=== PATIENT | male | born 1945 | race Caucasian/White ===

== ENCOUNTER 2018-06-03 07:15 | Inpatient (IN) | payer OTHER ==
[~2018-06-03 07:15] MED LIST: TRANEXAMIC ACID 1,000 MG in NS 100 ML IV ONE
[2018-06-03] MEDS ORDERED: LR 1,000 ML IV ONE (11:39)
[2018-06-03] MEDS ORDERED: morphINE PF 0.2 MG in SYRINGE INTRATHECAL 1 SYR IT ONE (11:39)
[2018-06-03] MEDS ORDERED: ACETAMINOPHEN 500 MG TAB PO ONE (11:39)
[2018-06-03] MEDS ORDERED: GABAPENTIN 300 MG CAP PO ONE (11:39)
[2018-06-03] MEDS ORDERED: LIDOCAINE 1% 2 ML INJ ID PRN (11:39)
[2018-06-03] MEDS ORDERED: fentaNYL 50 MCG in SYRINGE INTRATHECAL 1 SYR IT ONE (11:39)
[2018-06-03] MEDS ORDERED: ceFAZolin 2 GM/DEXTROSE 100 ML IV ONE (11:39)
[2018-06-03] MEDS ORDERED: BUPIVACAINE 0.25% 10 ML SDV ONE (12:42)
[2018-06-03] MEDS ORDERED: THROMBIN (BOVINE) 5,000 UNIT VIAL TP ONE (12:42)
[2018-06-03] MEDS ORDERED: BACITRACIN 50,000 UNITS/10 ML SYR IRR ONE (12:42)
[2018-06-03] MEDS ORDERED: CHLORHEXIDINE GLUC HIBICLENS 118 ML BTL TP ONE (12:42)
[2018-06-03] MEDS ORDERED: BUPIVACAINE/EPI 0.25% 30 ML SDV ONE (12:42)
--- NOTE | 2018-06-03 12:52 | PDHPUP ---
History & Physical Update H&P update statement: This history and physical update is based on an assessment of the patient which was completed after admission or registration (within 24 hours), but prior to the surgery/procedure. H&P update: H&P reviewed & patient examined
--- NOTE | 2018-06-03 13:04 | PDGENHP ---
History & Physical Chief Complaint: Right sided Low back pain and leg pain History of Present Illness: 72 yo male with progressive Lowback and right leg pain. Failed to improve with PT and lumbar Epidural steroid injection Pertinent Past, Social, Family History: FH: non contributory. Social: non smoker, denies alchohol use. Lives alone. Daughter Dacia lives in the area Relevant Physical Exam: 5/5 bilateral LE strength with decreased sensation in right leg Cardiorespiratory Assessment: Lungs: CTA bilaterally. Heart: RRR
--- NOTE | 2018-06-03 13:09 | POSTOPPROG ---
Post Op Note Date of Operation: 06/03/18 Surgeon: Gary Tafoya Fold Skiver: Quentin Valenzuela Anesthesiologist: Evan Gonzalez MD Anesthesia: GET(General Endotracheal) Pre-op Diagnosis: L4/5 DJD, spondylolisthesis, stenosis Post-op Diagnosis: same Indication: Low back and right leg pain Procedure: L4/5 TLIF Findings: Severe DJD, stenosis Inf/Abcess present in the surg proc area at time of surgery?: No EBL: 100-500 Complications: None Drains: Marquis Fatima (to bulb suction) Specimen(s): none
[2018-06-03] MEDS ORDERED: MIDAZOLAM 2 MG/2 ML VIAL IVP ONE (13:24)
[2018-06-03] MEDS ORDERED: MIDAZOLAM 2 MG/2 ML VIAL ONE (13:25)
--- NOTE | 2018-06-03 13:26 | PDANEPAE ---
ANE Past Medical History - Cardiovascular History Hx Hypertension: No Hx Arrhythmias: Yes Hx Chest Pain: No Hx Coronary Artery / Peripheral Vascular Disease: No Hx CHF / Valvular Disease: No Hx Palpitations: No Cardiovascular History Comment: [facility] [employer]CHNIC[employer] OSORIO CORETZJuve - Pulmonary History Hx COPD: No Hx Asthma/Reactive Airway Disease: No Hx Recent Upper Respiratory Infection: No Hx Oxygen in Use at Home: No Hx Sleep Apnea: No Sleep Apnea Screening Result - Last Documented: Negative - Neurologic History Hx Cerebrovascular Accident: No Hx Seizures: No Hx Dementia: No - Endocrine History Hx Diabetes: No Endocrine History Comment: HYPOTHYROIDISM - Renal History Hx Renal Disorders: No Renal History Comment: GREEN LIGHT LASER 01/2018 - Liver History Hx Hepatic Disorders: No - Neurological & Psychiatric Hx Hx Neurological and Psychiatric Disorders: Yes Neurological / Psychiatric History Comment: ANXIETY. DEPRESSION - Cancer History Hx Cancer: No - Congenital Disorder History Hx Congenital Disorders: No - GI History GERD: no Hx Gastrointestinal Disorders: Yes Gastrointestinal History Comment: CONSTIPATION - Other Health History Other Health History: RT LEG NUMBNESS. SPONDYLOLISTHESIS - Chronic Pain History Chronic Pain: Yes (RT LEG NUMBNESS) - Surgical History Prior Surgeries: GREEN LIGHT LASER 01/2018. RT TOTAL SHLDR 05/2013. PACEMAKER 2014. HERNIA REPAIR. RIGHT HATTIE. COLLAR BONE REPAIR 1972 ANE Review of Systems Review of Systems: - Exercise capacity METS (RN): 4 METS - Pacemaker Pacemaker Type: Permanent Pacer/Defib Pacemaker Vending Machine Technician: [employer] Pacemaker Model: ASSURITY Pacemaker Mode: DDDR Date Pacemaker Last Checked: 04/30/18 ANE Patient History - Allergies Allergies/Adverse Reactions: No Known Allergies Allergy (Verified 05/19/18 13:52) - Home Medications Home medications: home medication list seen and reviewed Home Medications: Aspirin [Aspirin 81mg (*)] 81 mg PO DAILY 05/19/18 [Last Taken 05/27/18] Carboxymethylcellulose 1% [Refresh Celluvisc (*)] 1 drop EACHEYE DAILY 05/19/18 [Last Taken 06/03/18 07:00] Cholecalciferol Vit D3 [Vitamin D3 (*)] 1,000 units PO DAILY 05/19/18 [Last Taken 05/27/18] Herbals/Supplements -Info Only 1 ea PO DAILY 05/19/18 [Last Taken 05/26/18] Levothyroxine [Synthroid 100 mcg (*)] 100 mcg PO DAILY06 05/19/18 [Last Taken 06:45] Multivitamins [Multivitamin (*)] 1 each PO DAILY 05/19/18 [Last Taken Unknown] Naproxen Sodium [Aleve 220 MG (*)] 220 mg PO BID PRN 05/19/18 [Last Taken ] traZODone [traZODONE 50MG (*)] 50 mg PO HS 05/19/18 [Last Taken 06/02/18 21:00] - NPO status NPO Status: no food or drink >8 hours NPO Since - Liquids (Date): 06/03/18 NPO Since - Liquids (Time): 06:45 NPO Since - Solids (Date): 06/02/18 NPO Since - Solids (Time): 20:00 - Smoking Hx Smoking Status: Former smoker - Family Anes Hx Family Hx Anesthesia Complications: NONE ANE Labs/Vital Signs - Vital Signs Blood Pressure: 122/96 Heart Rate: 62 Respiratory Rate: 16 O2 Sat (%): 93 Height: 180.34 cm Weight: 96.615 kg ANE Physical Exam - Airway Neck exam: FROM Mallampati Score: Class 2 Mouth exam: normal dental/mouth exam - Pulmonary Pulmonary: no respiratory distress, no rales or rhonchi, clear to auscultation - Cardiovascular Cardiovascular: regular rate and rhythym, no murmur, rub, or gallop - ASA Status ASA Status: III ANE Anesthesia Plan Anesthesia Plan: general endotracheal anesthesia
[2018-06-03] MEDS ORDERED: PROPOFOL 200 MG/20 ML VIAL ONE (13:34)
[2018-06-03] MEDS ORDERED: ONDANSETRON 4 MG/2 ML VIAL ONE (13:37)
[2018-06-03] MEDS ORDERED: SUCCINYLCHOLINE CHLORIDE 200 MG/10 ML SYR IVP ONE (13:37)
[2018-06-03] MEDS ORDERED: DEXAMETHASONE 4 MG/ML VIAL ONE (13:37)
[2018-06-03] MEDS ORDERED: DEXMEDETOMIDINE HCL 200 MCG in NS 50 ML IV ONE (14:00)
[2018-06-03] MEDS ORDERED: LIDOCAINE 2% 5 ML SDV ONE (14:04)
[2018-06-03] MEDS ORDERED: PROMETHAZINE HCL 25 MG/ML INJ IVP PRN (16:34)
[2018-06-03] MEDS ORDERED: LR 500 ML IV PRN (16:34)
[2018-06-03] MEDS ORDERED: NALOXONE HCL 0.4 MG/ML INJ IVP PRN (16:34)
[2018-06-03] MEDS ORDERED: fentaNYL 100 MCG/2 ML INJ IVP PRN (16:34)
[2018-06-03] MEDS ORDERED: MEPERIDINE 25 MG/0.5 ML AMP IVP PRN (16:34)
[2018-06-03] MEDS ORDERED: ONDANSETRON 4 MG/2 ML VIAL IVP PRN ×2 (16:34→16:50)
[2018-06-03] MEDS ORDERED: PHENYLEPHRINE HCL 100 MCG/ML SYR IVP PRN (16:34)
[2018-06-03] MEDS ORDERED: DIAZEPAM 5 MG/ML 1 ML SYR IVP PRN (16:34)
[2018-06-03] MEDS ORDERED: ACETAMINOPHEN 500 MG TAB PO PRN (16:34)
[2018-06-03] MEDS ORDERED: ceFAZolin 1 GM VIAL ONE (16:43)
[2018-06-03] MEDS ORDERED: BISACODYL 10 MG SUPP PR PRN (16:50)
[2018-06-03] MEDS ORDERED: MAGNESIUM HYDROXIDE 30 ML UDCUP PO PRN (16:50)
[2018-06-03] MEDS ORDERED: diphenhydrAMINE 25 MG CAP PO PRN (16:50)
[2018-06-03] MEDS ORDERED: oxyCODONE IR 5 MG TAB PO PRN (16:50)
[2018-06-03] MEDS ORDERED: ONDANSETRON DISINTEGRATING 4 MG TAB PO PRN (16:50)
[2018-06-03] MEDS ORDERED: LACTULOSE 20 GM/30 ML UDCUP PO PRN (16:50)
[2018-06-03] MEDS ORDERED: morphINE PCA 30 MG/30 ML PCA IV PRN (16:55)
[2018-06-03] MEDS ORDERED: NS 1,000 ML IV SCH (17:00)
--- NOTE | 2018-06-03 17:02 | SOAPPROG ---
SOAP Progress Note Assessment/Plan: POST OP CHECK Assessment: Doing well sp L4/5 TLIF Plan: CPM in PACU transfer to floor per protocol JEZ to bulb suction 06/03/18 16:56 Subjective: Awake, comfortable. Denies pain Objective: Vital Signs Temp Pulse Resp BP Pulse Ox 36.4 C 62 16 122/96 H 93 06/03/18 12:45 06/03/18 13:26 06/03/18 13:26 06/03/18 13:26 06/03/18 13:26 Neuro: KELLEY, sens +LT throughout PERRLA, EOMI Vitals: BP: 101/56 HR:81 O2:97% ICD10 Worksheet Patient Problems: Problems Problem Status Onset Spondylolisthesis at L4-L5 level Acute - ICD10 Problem Qualifiers (1) Spondylolisthesis at L4-L5 level
--- NOTE | 2018-06-03 17:04 | POSTANESTH ---
Post Anesthetic Evaluation Cardiovascular Status: Other, See Comment (Relatively hypotensive (100s/60s) on arrival due to dexmedetomidine; will observe for now. Phenylephrine ordered.) Respiratory Status: Normal, Stable, Similar to Pre-op Cond. Level of Consciousness/Mental Status: Can Participate in Eval, Moderately Sleepy Pain Control: Adequate, Prn Tx Ordered Nausea/Vomiting Control: Adequate, Prn Tx Ordered Complications Possibly Related to Anesthesia: None Noted
[2018-06-03] MEDS ORDERED: METHOCARBAMOL 750 MG TAB ONE (17:37)
[2018-06-03] MEDS: METHOCARBAMOL 750 MG TAB PO PRN (17:43)
[2018-06-03] MEDS: SENNOSIDES/DOCUSATE SODIUM TAB PO SCH (20:59)
[2018-06-03] MEDS: morphINE SR 15 MG TAB PO SCH (21:00)
[2018-06-03] MEDS: FAMOTIDINE 20 MG TAB PO SCH (21:01)
[2018-06-03] MEDS: GABAPENTIN 300 MG CAP PO SCH (21:01)
[2018-06-03] MEDS: ceFAZolin 2 GM/DEXTROSE 100 ML IV SCH (21:09)
--- NOTE | 2018-06-03 21:51 | GOP ---
DATE OF OPERATION: 06/03/2018 SURGEON: Gary Tafoya MD NEUROSURGEON: Gary Tafoya MD OUTPATIENT SURGERY RN: JOSÉ Dougherty ANESTHESIA: General endotracheal. PREOPERATIVE DIAGNOSIS: Severe L4-5 degenerative joint disease and spondylolisthesis with severe spi nal stenosis and lateral recess impingement. Intractable low back pain and right lower extremity rad icular symptoms. Failed conservative care. POSTOPERATIVE DIAGNOSIS: Severe L4-5 degenerative joint disease and spondylolisthesis with severe sp inal stenosis and lateral recess impingement. Intractable low back pain and right lower extremity ra dicular symptoms. Failed conservative care. PROCEDURE PERFORMED: Mini open exposure for right-sided far lateral transpedicular decompression at the L4-5 level with posterior nonsegmental (pedicle screw and axle device) fixation and posterolatera l fusion with local autograft and bone morphogenic protein. L4-5 posterior/transforaminal lumbar int erbody fusion with 2 structural PEEK interbody spacers with local autograft and bone morphogenic prot ein. Use of intraoperative microscopy fluoroscopy and computer volumetric stereotactic navigation wi intraoperative neurophysiologic testing. Injection of intrathecal narcotic analgesics and subcuta neous and intramuscular local anesthesia. FINDINGS: ESTIMATED BLOOD LOSS: 75 cc. INDICATIONS: The patient is a 72-year-old man with intractable low back pain and right lower extremi ty radicular symptoms, secondary to grade 1 spondylolisthesis and severe spinal stenosis and lateral recess impingement at the L4-5 level. He has failed extensive conservative care and presents now for surgical decompression and stabilization. DESCRIPTION OF PROCEDURE: After informed consent was obtained, the patient was taken to the operatin g room and placed in the prone position on the Marquis table. The lumbosacral area was prepped and d raped in a sterile fashion, and after fluoroscopic localization of the correct level, the subcutaneou s and intramuscular tissues were infiltrated with local anesthesia. A midline linear incision was then created over the L4-5 spinous processes. This was carried down to the fascial layer, which was incised using monopolar electrocautery and carried in the subperiosteal plane along the spinous processes and lamina bilaterally. Intraoperative fluoroscopy was again util ized to verify the correct levels. Following this, the dissection was carried out over the facet mandeep nts. The microscope was then brought in and right-sided far lateral transpedicular decompression was performed with complete unroofing of the facet joint and neural foramen at L4 and L5. The central c anal decompression was also performed. Following adequate decompression, the wound and epidural space were copiously irrigated with antibiot ic irrigation and meticulous hemostasis was achieved. The Stealth neuronavigational system was then brought in and pedicle screws were placed on the right at the L4 and L5 levels. On the left, a L5 sc rew was placed, but I had significant difficulty placing and L4 screw and eventually decided to take the L5 screw out on the left side and only use unilateral pedicle screws on the right side with an ax le device, instead of risking neural injury trying to place a screw on the left at L4. Following verification of good position of the screws using biplanar fluoroscopy, a ernestina was placed un goldy a slight amount of distraction at the L4-5 level during which period, a complete diskectomy was t hen performed with preparation of the endplates and placement of 2 structural PEEK interbody spacers, with local autograft and bone morphogenic protein for an L4-5 posterior/transforaminal lumbar interb jeffry fusion. The screw and ernestina system were then placed in a slight amount of compression in order to facilitate bony union and to minimize the potential for posterior graft migration. An axial device was then placed at the L4-5 level to reinforce this since there were no screws on the left side. The wound was copiously irrigated and meticulous hemostasis was achieved. After re-veri fication of good position of the screws ernestina and interspinous process clamp, and interbody spacers, th e remaining lamina and facet joint on the left were extensively decorticated, and the residual local autograft, along with bone morphogenic protein was placed out laterally for posterolateral fusion at the L4-5 level. 200 mcg of Duramorph, along with 50 mcg of fentanyl were then injected intrathecally for postoperativ e pain control. Note that each individual screw was tested neurophysiologically with monopolar elect rostimulation and interpretation of the potentials by the surgeon prior to placing the ernestina. After in jecting the intrathecal narcotics subcutaneous and intramuscular tissues were also re-infiltrated wit h local anesthesia. A drain was placed and the wound was closed in a layered fashion using interrupt ed Vicryl sutures, followed by Steri-Strips on the skin. COMPLICATIONS: None. DISPOSITION: The patient is currently in the process of being repositioned for extubation. /[id number]/MODL
[2018-06-03] MEDS: POLYETHYLENE GLYCOL 3350 17 GM PKT PO SCH (22:00)
[2018-06-04 05:48] LABS: PLATELET COUNT 260 10^3/uL (150-400)
[2018-06-04] MEDS: ceFAZolin 2 GM/DEXTROSE 100 ML IV SCH (05:51)
[2018-06-04] MEDS: GABAPENTIN 300 MG CAP PO SCH ×3 (05:52→21:24)
[2018-06-04] MEDS: LEVOTHYROXINE 100 MCG TAB PO SCH (05:52)
--- NOTE | 2018-06-04 07:50 | SOAPPROG ---
SOAP Progress Note Assessment/Plan: Assessment: POD #1 sp L4/5 TLIF. Doing well but required straight cath overnight Plan: Start Flomax today. Lovenox starts today. JEZ to bulb suction xrays today PT/OT in [facility] today Will need Rehab placement since he lives alone Subjective: Awake, alert. Doing well, pain controlled. Urinary retention overnight requiring straight cath Objective: Vital Signs Temp Pulse Resp BP Pulse Ox 37.1 C 61 16 102/70 97 06/04/18 07:21 06/04/18 07:21 06/04/18 07:21 06/04/18 07:21 06/04/18 07:21 Laboratory Results 06/04/18 05:19 06/04/18 05:19 06/03/18 06/04/18 06/05/18 05:59 05:59 05:59 Intake Total 2540 Output Total 1750 Balance 790 Neuro: KELLEY, Sens +LT Dressing: patch of dried blood at top of dressing JEZ: 100ml in bulb this AM. 50 overnight per chart I/O ICD10 Worksheet Patient Problems: Problems Problem Status Onset Spondylolisthesis at L4-L5 level Acute - ICD10 Problem Qualifiers (1) Spondylolisthesis at L4-L5 level
[2018-06-04] MEDS ORDERED: NALOXONE HCL 0.4 MG/ML INJ IVP PRN (09:26)
[2018-06-04] MEDS: CHOLECALCIFEROL VIT D3 1,000 UNITS TAB PO SCH (09:59)
[2018-06-04] MEDS: TAMSULOSIN HCL 0.4 MG CAP PO SCH (09:59)
[2018-06-04] MEDS: morphINE SR 15 MG TAB PO SCH ×2 (09:59→21:24)
[2018-06-04] MEDS: FAMOTIDINE 20 MG TAB PO SCH ×2 (10:00→21:24)
[2018-06-04] MEDS: SENNOSIDES/DOCUSATE SODIUM TAB PO SCH ×2 (10:00→21:25)
[2018-06-04] MEDS: ENOXAPARIN 40 MG/0.4 ML SYR SC SCH (10:00)
[2018-06-04] MEDS: POLYETHYLENE GLYCOL 3350 17 GM PKT PO SCH ×3 (10:00→21:25)
--- NOTE | 2018-06-04 10:20 | PDMN ---
Medical Necessity Medical necessity: Pt meets IP criteria as of 06/03/2018 per and MALA S820 ( Lumbar Fusion) Medicare IP only procedure.
[2018-06-04] MEDS: CARBOXYMETHYLCELLULOSE 1% 0.4 ML DROPERETTE EACHEYE SCH (10:50)
--- NOTE | 2018-06-04 14:59 | ASMTCMCOM ---
CM Note CM Note Notes: Pt had planned spinal surgery, resides alone. PT rec SNF, OT rec home/HHC/ 24 hr supervision/SNF. Neurosurgery progress note mentions a rec for SNF. Pt was pre-arranged with [facility]. Spoke with pt about d/c options, pt declines SNF list and is adamant he will go home. Pt reports he is moving well, has the support of several neighbors and has access to meals. Pt amenable to home health, Carolee with [facility] met with pt today. CM will continue to follow pt progress. D/c plan of care: [facility] PT unless pt decides on SNF Date Signed: 06/04/2018 02:59 PM Electronically Signed By:DULCE Fontenot
[2018-06-04] MEDS: METHOCARBAMOL 750 MG TAB PO PRN (18:29)
[2018-06-05] MEDS: ACETAMINOPHEN 500 MG TAB PO SCH ×4 (00:20→21:58)
[2018-06-05] MEDS: METHOCARBAMOL 750 MG TAB PO PRN ×3 (00:36→18:49)
[2018-06-05] MEDS: GABAPENTIN 300 MG CAP PO SCH ×3 (05:15→21:59)
[2018-06-05] MEDS: LEVOTHYROXINE 100 MCG TAB PO SCH (05:15)
[2018-06-05] MEDS ORDERED: ACETAMINOPHEN 500 MG TAB PO SCH (06:00)
[2018-06-05] MEDS: CARBOXYMETHYLCELLULOSE 1% 0.4 ML DROPERETTE EACHEYE SCH (08:14)
[2018-06-05] MEDS: CHOLECALCIFEROL VIT D3 1,000 UNITS TAB PO SCH (08:15)
[2018-06-05] MEDS: FAMOTIDINE 20 MG TAB PO SCH ×2 (08:15→21:59)
[2018-06-05] MEDS: SENNOSIDES/DOCUSATE SODIUM TAB PO SCH ×2 (08:15→21:58)
[2018-06-05] MEDS: POLYETHYLENE GLYCOL 3350 17 GM PKT PO SCH ×3 (08:15→21:58)
[2018-06-05] MEDS: TAMSULOSIN HCL 0.4 MG CAP PO SCH (08:15)
[2018-06-05] MEDS: ENOXAPARIN 40 MG/0.4 ML SYR SC SCH (08:19)
--- NOTE | 2018-06-05 12:09 | NEUSURGPN ---
Assessment/Plan: Assessment/Plan: Assessment: POD #2 sp L4/5 TLIF. Doing well this am. Last night was febrile with chills. Plan: Neuro: Stable, was febrile overnight, CBC shows WBC count of 16. Patient has remained afebrile since last night and is feeling better this morning Will get UA and CXR as well. Patient has remained afebrile since last night but since WBC elevated, will check to make sure no other signs of infection. Optimize pain management- Doing well, will stop MS Contin today as may be contributing to urinary retention and pain is well controlled Continue Flomax If fails voiding trial with catheter out, will replace catheter and likely follow up with urology next week Lovenox JEZ to bulb suction- output 90, will keep today xrays PT/OT Will need Rehab placement since he lives alone Catheter Insertion Date: 06/04/18 - Physician Discussed Patient with : Lottie Neurosurgery Physical Exam - Vitals, I&O, Labs I and O 06/04/18 06/05/18 06/06/18 05:59 05:59 05:59 Intake Total 2540 2950 500 Output Total 1750 5640 90 Balance 790 -2690 410 Weight 96.615 kg Intake: Oral (ml) 1340 2950 500 IV Intake (ml) 1200 Output: Urine (ml) 1500 5500 Catheter 5500 Urinal 1500 Estimated Blood Loss (ml) 200 JEZ Drain Output (ml) 50 140 90 Back Marquis Fatima 50 140 90 Other: Intake Quantity Yes Yes Yes Sufficient Output Comment Urinal straight cathed Bladder Scan Volume (ml) Urinal 999 Vital Signs Temp Pulse Resp BP Pulse Ox 36.8 C 75 16 112/67 96 06/05/18 11:25 06/05/18 11:25 06/05/18 11:25 06/05/18 11:25 06/05/18 11:25 Laboratory Results 06/04/18 05:19 06/04/18 05:19 ICD10 Worksheet Patient Problems: Problems Problem Status Onset Spondylolisthesis at L4-L5 level Acute
[2018-06-05] MEDS: morphINE SR 15 MG TAB PO SCH (13:20)
[2018-06-05] MEDS ORDERED: MAGNESIUM CITRATE 300 ML BOTTLE PO PRN (13:36)
[2018-06-06] MEDS: ACETAMINOPHEN 500 MG TAB PO SCH (05:36)
[2018-06-06] MEDS: GABAPENTIN 300 MG CAP PO SCH (05:37)
[2018-06-06] MEDS: LEVOTHYROXINE 100 MCG TAB PO SCH (05:37)
[2018-06-06 07:56] VITALS: BP 116/69
--- NOTE | 2018-06-06 08:12 | NEUSURGPN ---
Date of Surgery: 06/03/18 Post Op Day: 3 Assessment/Plan: 72 yo male s/p L4/5 TLIF POD#3. Plan: - neuro stable - afebrile this morning, CXR/UA negative - voiding without difficulty - pain controlled - wear brace when out of bed - PT/OT - continue JEZ drain - postop x-rays with hardware in good placement - Discharge: home today with home health care with JEZ drain. Plan for patient to remove drain on Saturday at home. Discussed with Dr. Bansal Subjective: Doing well this morning. Would like to go home. Objective: Awake. Alert. PERRL. EOMI Facial expression symmetrical Muscle strength full at 5/5 Incision with dressing Catheter Insertion Date: 06/04/18 - Physician Discussed Patient with DrDipika: Lottie Neurosurgery Physical Exam - Vitals, I&O, Labs I and O 06/05/18 06/06/18 06/07/18 05:59 05:59 05:59 Intake Total 2950 2500 500 Output Total 5640 2665 Balance -2690 -165 500 Intake: Oral (ml) 2950 2500 500 Output: Urine (ml) 5500 2500 Catheter 5500 900 Urinal 1600 JEZ Drain Output (ml) 140 165 Back Marquis Fatima 140 165 Other: Intake Quantity Yes Yes Sufficient Number of Voids Catheter 1 Urinal 1 Number of Stools Toilet 2 Vital Signs Temp Pulse Resp BP Pulse Ox 37.1 C 74 17 116/69 93 06/06/18 07:54 06/06/18 07:54 06/06/18 07:54 06/06/18 07:54 06/06/18 07:54 Laboratory Results 06/04/18 05:19 06/04/18 05:19 ICD10 Worksheet Patient Problems: Problems Problem Status Onset Spondylolisthesis at L4-L5 level Acute
--- NOTE | 2018-06-06 08:14 | PDIAF ---
- Diagnosis Diagnosis: Lumbar stenosis s/p TLIF Code Status: Full Code - Medication Management Discharge Medications: electronically signed and located in the Home Medication List. - Orders Services needed: Home Care, Physical Therapy, Occupational Therapy Home Care Face to Face: I certify that this patient was under my care and that I had the required [id number] encounter meeting the encounter requirements on the discharge day. My findings support the fact that the patient is homebound as defined in Home Care Face to Face Continued: CMS Chapter 7 Medicare Benefits Manual 30.1.1 , The condition of the patient is such that there exists a normal inability to leave home and consequently, leaving home would require a considerable and taxing effort. Isolation Type: None Diet Recommendation: no restrictions on diet Diet Texture: Regular Texture Diet Wound Care Instructions: Remove JEZ drain on Friday 06/08 Activity/Weight Bearing Restrictions: Wear brace when out of bed. Refrain from lifting more than 10 pounds and bending/twisting Additional Instructions: 1. Follow up with Dr. Bansal in 2 weeks. [phone] 2. Wear brace when out of bed. Refrain from lifting more than 10 pounds and bending/twisting. 3. Avoid NSAIDs (Ibuprofen, Motrin, Aleve, Advil) 4. Remove JEZ drain on Friday 06/08 5. Ok to shower and get incision wet. Be gentle. 6. Call Dr. Bansal's office with any questions/concerns. - Follow Up Care Current Providers and Referrals: Joie Lamas MD [Primary Care Provider] - Gary Tafoya MD [Medical Doctor] -
[2018-06-06] MEDS: METHOCARBAMOL 750 MG TAB PO PRN (08:37)
[2018-06-06] MEDS: SENNOSIDES/DOCUSATE SODIUM TAB PO SCH (09:46)
[2018-06-06] MEDS: CHOLECALCIFEROL VIT D3 1,000 UNITS TAB PO SCH (09:47)
[2018-06-06] MEDS: TAMSULOSIN HCL 0.4 MG CAP PO SCH (09:47)
[2018-06-06] MEDS: FAMOTIDINE 20 MG TAB PO SCH (09:47)
[2018-06-06] MEDS: CARBOXYMETHYLCELLULOSE 1% 0.4 ML DROPERETTE EACHEYE SCH (09:49)
[2018-06-06] MEDS: ENOXAPARIN 40 MG/0.4 ML SYR SC SCH (09:50)
[2018-06-06] MEDS: POLYETHYLENE GLYCOL 3350 17 GM PKT PO SCH (09:51)
--- NOTE | 2018-06-06 12:08 | ASDISCHSUM ---
Discharge Information Plan Status:Home with Home Health Medically Cleared to Leave: Discharge Date:06/06/2018 11:20 AM CM D/C Disposition: ADT [facility] Projected Discharge Date:06/06/2018 11:00 AM Transportation at D/C: Discharge Delay Reason: Follow-Up Date:06/06/2018 11:00 AM Discharge Slot: Final Diagnosis: Placement Information Referral Type:*Home Health Care Services Referral ID:[id number] Provider Name:L[facility] ([facility] Address 1:[address] [address] Address 2: City:[place] Selection Factors: State:[place] Patient Contact Information Contact Name:FITZ Relationship:Daughter Address: Work Phone: City: [facility] Phone: [facility] Code: Email: Financial Information Financial Class:Medicare Primary Plan Desc:MEDICARE INPATIENT Primary Plan Number:[id number] Secondary Plan Desc:[place] [employer] Secondary Plan Number:[id number] Assessment Information LACE LACE Length of stay for Answers: 4-6 days current admission Acuity / Level of Answers: Yes Care: Did the patient have an inpatient admission? Comorbidities - select Answers: Opioid dependence all that apply / Chronic pain Other Notes: Hypothyroid # of Emergency department Answers: 0 visits in the last 6 months Social determinants Answers: Mental health diagnosis (anxiety, depression, pers onality disorders, etc.) Score: 15 Date Signed: 06/06/2018 12:06 PM Electronically Signed By:DULCE Fontenot [facility] CM Progress Note CM Note CM Note Notes: Pt had planned spinal surgery, resides alone. PT rec SNF, OT rec home/[facility]/ 24 hr supervision/SNF. Neurosurgery progress note mentions a rec for SNF. Pt was pre-arranged with [facility]. Spoke with pt about d/c options, pt declines SNF list and is adamant he will go home. Pt reports he is moving well, has the support of several neighbors and has access to meals. Pt amenable to home health, Carolee with [facility] met with pt today. CM will continue to follow pt progress. D/c plan of care: [facility] PT unless pt decides on SNF Date Signed: 06/04/2018 02:59 PM Electronically Signed By:DULCE Fontenot [facility] CM Progress Note CM Note CM Note Notes: Pt medically stable for d/c with [facility], orders sent in [employer]. Carolee with [facility] notified. Date Signed: 06/06/2018 12:07 PM Electronically Signed By:DULCE Fontenot Intervention Information Intervention Type:*Incorrect Registration Date of Service:06/03/2018 05:14 PM Patient Type:Inpatient Staff Member:Danica Gonzalez Hours: Discipline: Severity: Comment: Intervention Type:*IM-Signed Date of Service:06/06/2018 09:55 AM Patient Type:Inpatient Staff Member:La Guillen Hours: Discipline: Severity: Comment:
--- NOTE | 2018-06-06 12:08 | ASMTCMCOM ---
CM Note CM Note Notes: Pt medically stable for d/c with [facility], orders sent in [employer]. Carolee with [facility] notified. Date Signed: 06/06/2018 12:07 PM Electronically Signed By:DULCE Fontenot
== END 2018-06-06 11:20 | disposition home health service (06) | DRG 455 ==
LOC: F3N 10:59 → OBSVTOIN 16:55 → F3N 18:08
PROVIDERS: ADMIT Neurological Surgery; ATTEND Neurological Surgery
DX: M47.26 Other spondylosis with radiculopathy, lumbar region (principal); M43.16 Spondylolisthesis, lumbar region; R33.9 Retention of urine, unspecified; E03.9 Hypothyroidism, unspecified; F41.9 Anxiety disorder, unspecified; F32.9 Major depressive disorder, single episode, unspecified; K59.00 Constipation, unspecified; Z95.0 Presence of cardiac pacemaker; Z96.641 Presence of right artificial hip joint; Z96.611 Presence of right artificial shoulder joint
CPT/HCPCS: 97116-GP; 97161-GP; 97165-GO; 97535-GO; C1713; G8978-GP-CJ; G8979-GP-CI; G8980-GP-CI; G8987-GO-CI; G8988-GO-CI; G8989-GO-CI; J0330; J0690; J1100; J1650; J2250; J2270; J2274; J2405; J2704; J3010